=== PATIENT | female | born 2000 | race Caucasian/White ===

== ENCOUNTER 2019-02-16 15:27 | Emergency (ER) | payer SELFPAY ==
[~2019-02-16] VITALS: Ht 160 cm; Wt 59.4 kg
[2019-02-16 15:31] VITALS: BP 116/63; PULSE 84; RESP 18; Ht 160 cm; Wt 59.4 kg
== END 2019-02-16 15:50 | disposition left against medical advice (07) ==
LOC: FTE 15:27
DX: Z53.21 Procedure and treatment not carried out due to patient leaving prior to being seen by health care provider (principal)